=== PATIENT | male | born 1980 | race Caucasian/White ===

== ENCOUNTER 2017-04-11 17:33 | Observation (INO) ==
[2017-04-11] MEDS ORDERED: Ondansetron ODT 4 MG TAB.RAPDIS SL ONE (18:11)
[2017-04-11 19:29] LABS: Basophils # 0.1 K/mcL (0.0-0.2); Basophils % 0.4 %; Eosinophils # 0.3 K/mcL (0.0-0.6); Eosinophils % 2.3 %; Hematocrit 46.1 % (37.5-50.1); Hemoglobin 16.4 g/dL (12.9-16.9); Immature Granulocytes % 0.3 % (0-4); Lymphocytes # 2.3 K/mcL (0.6-4.6); Lymphocytes % 18.9 %; Mean Corpuscular HGB Conc 35.6 g/dL (31.6-35.5); Mean Corpuscular Hemoglobin 30.8 pg (28.0-33.3); Mean Corpuscular Volume 86.5 fL (83.0-100.0); Mean Platelet Volume 9.9 fL (9.4-12.4); Monocytes % 8.6 %; Neutrophils # 8.3 K/mcL (1.6-8.9); Platelet Count 273 K/mcL (140-400); Red Blood Count 5.33 M/mcL (4.19-5.50); Red Cell Distribution Width 13.2 % (11.5-14.5); Segmented Neutrophils % 69.5 %
[2017-04-11 19:43] LABS: Amylase 37 Units/L (25-125); BUN/Creatinine Ratio 12 (6-26); Blood Urea Nitrogen 9 mg/dL (8-26); Calcium 9.2 mg/dL (8.6-10.8); Carbon Dioxide 21 mEq/L (19-29); Chloride 107 mEq/L (98-109); Glucose 116 mg/dL (70-99); Lipase 6 Units/L (8-78); Osmolality,Calculated 286 (280-300); Potassium 3.8 mEq/L (3.5-4.5); Sodium 138 mEq/L (136-145); eGFR For African Americans > 60 (> 60); eGFR For Non-African Americans > 60 (> 60)
[2017-04-11] MEDS ORDERED: *HR* HYDROmorphone (PF) 1 MG/ML SYRINGE IVP ONE ×2 (20:02→21:59)
--- NOTE | 2017-04-11 20:06 | Emergency Department Note ---
Disposition Clinical Impression: Abnormal liver function tests, Elevated C-reactive protein (CRP), Vomiting, Diarrhea, Upper abdominal pain, Colitis, Abnormal urinalysis Disposition: Admitted As Inpatient General Adult HPI - General Chief complaint: ED Nausea/Vomiting/Diarrhea Stated complaint: N/V/D X3 days Time Seen by Provider: 04/11/17 19:09 Source: patient Limitations: no limitations - History of Present Illness HPI Narrative: 37-year-old male reports emergency department complaining of abdominal pain. He also describes recurrent vomiting and diarrhea for the last 2 days. He has not traveled or eaten any unusual foods. There have been no sick contacts. The patient has a history of remote cholecystectomy. He denies any other major medical problems including diabetes. He has had no chest pain or shortness of breath. No flank pain or urinary symptoms. The patient has not passed out. There is no history of fever. The patient denies any malgorzata bloody or black material in the stool. He did take some Pepto-Bismol. The patient has missed some work. He has no personal history of ulcerative colitis or Crohn's disease. He is not anticoagulated. The patient describes significant abdominal pain. There is no history of flank pain or trauma. No other complaints or concerns noted. Pain Scale: 7 - Related Data Home Medications Medication Instructions Recorded Confirmed No Known Home Drugs 04/11/17 04/11/17 Allergies Allergy/AdvReac Type Severity Reaction Status Date / Time Penicillins Allergy See Verified 04/11/17 17:47 Comments All systems ED: reviewed and negative except as stated. Past Medical History - Past Medical History Medical history: Reports: no medical history Psychiatric history: Reports: no psych history - Social History Smoking Status: Current every day smoker Alcohol use: Reports: occasionally Drug use: Reports: none Physical Exam - General Limitations: no limitations General appearance: alert, in no apparent distress - Head Head exam: atraumatic, normocephalic, normal inspection - Eye Eye exam: Present: normal appearance, PERRL, EOMI. Absent: scleral icterus, conjunctival injection, miosis, mydriasis - ENT ENT exam: normal exam, normal oropharynx, mucous membranes moist - Neck Neck exam: Present: normal inspection, full ROM, trachea midline. Absent: meningismus - Chest Chest inspection: Present: symmetric chest wall rise. Absent: tenderness - Respiratory Respiratory exam: Present: normal lung sounds bilaterally. Absent: respiratory distress, wheezes, stridor, accessory muscle use, prolonged expiratory phase - Cardiovascular Cardiovascular exam: Present: tachycardia - Abdominal Exam Abdominal exam: Present: soft, tenderness, guarding. Absent: distention, rebound, rigidity, trauma, Galan's sign, Rovsing's sign, tenderness at McBurney 's Point, ascites, pulsatile mass Abdominal tenderness: Present: RUQ, LUQ, epigastrium, moderate - Extremities Exam Extremities exam: Present: normal inspection, full ROM, normal capillary refill. Absent: tenderness, pedal edema, joint swelling, calf tenderness - Expanded Lower Extremity Exam Lower leg exam: Absent: Homans' sign Neurovascular/Tendon exam: Present: normal capillary refill. Absent: motor deficit, sensory deficit, tendon deficit, extremity cold to touch, pallor - Back Exam Back exam: Present: normal inspection, full ROM. Absent: tenderness, CVA tenderness (R), CVA tenderness (L), vertebral tenderness - Neurological Exam Neurological exam: Present: alert, oriented X3, CN II-XII intact. Absent: motor sensory deficit - Psychiatric Psychiatric exam: Present: normal affect, normal mood - Skin Skin exam: Present: warm, dry, intact, normal color. Absent: rash, cyanosis, diaphoresis, erythema, pallor, mottled Course Vital Signs Temperature 99.4 F 04/11/17 17:44 Pulse Rate 108 04/11/17 17:44 Respiratory Rate 16 04/11/17 17:44 Blood Pressure 131/85 04/11/17 17:44 O2 Sat by Pulse Oximetry 98 04/11/17 17:44 Temperature 99.4 F 04/11/17 17:44 Pulse Rate 103 04/11/17 21:58 Respiratory Rate 16 04/11/17 21:58 Blood Pressure 128/84 04/11/17 21:58 O2 Sat by Pulse Oximetry 96 04/11/17 21:58 Oxygen Delivery Oxygen Delivery Room Air Medical Decision Making - [facility] Narrative Medical decision making narrative: The patient has an apparent leukocytosis and CT scan suggestive of colitis. He was initially tachycardic and he has been experiencing significant pain. Pain control measures were given in the ED as well as IV fluid and antibiotics. Stool studies have been ordered. Based on the patient's pain, tachycardia, colonic abnormalities and a 3 day course of symptomatology with a markedly elevated CRP and abnormal urinalysis as well as abnormal liver function tests, I thought it would be appropriate to admit the patient to the hospital. I discussed the case with the hospitalist on-call who has accepted the patient to their care. - Lab Data Lab results reviewed: Yes I reviewed the patient's lab results. Result diagrams: 04/11/17 19:23 04/11/17 19:23 Lab Results 04/11/17 04/11/17 04/11/17 Range/Units 19:23 19:23 19:55 WBC 12.0 H (4.3-11.1) K/mcL RBC 5.33 (4.19-5.50) M/mcL Hgb 16.4 (12.9-16.9) g/dL Hct 46.1 (37.5-50.1) % MCV 86.5 (83.0-100.0) fL MCH 30.8 (28.0-33.3) pg MCHC 35.6 H (31.6-35.5) g/dL RDW 13.2 (11.5-14.5) % Plt Count 273 (140-400) K/mcL MPV 9.9 (9.4-12.4) fL Immature Gran % 0.3 (0-4) % Seg Neutrophils % 69.5 % Lymphocytes % 18.9 % Monocytes % 8.6 % Eosinophils % 2.3 % Basophils % 0.4 % Neutrophils # 8.3 (1.6-8.9) K/mcL Lymphocytes # 2.3 (0.6-4.6) K/mcL Monocytes # 1.0 (0.0-1.3) K/mcL Eosinophils # 0.3 (0.0-0.6) K/mcL Basophils # 0.1 (0.0-0.2) K/mcL Sodium 138 (136-145) mEq/L Potassium 3.8 (3.5-4.5) mEq/L Chloride 107 (98-109) mEq/L Carbon Dioxide 21 (19-29) mEq/L BUN 9 (8-26) mg/dL Creatinine 0.77 (0.72-1.25) mg/dL Est GFR ( Amer) > 60 (> 60) Est GFR (Non-Af Amer) > 60 (> 60) BUN/Creatinine Ratio 12 (6-26) Glucose 116 H (70-99) mg/dL Calculated Osmolality 286 (280-300) Calcium 9.2 (8.6-10.8) mg/dL Total Bilirubin 0.5 (0.2-1.2) mg/dL Direct Bilirubin 0.2 (0.0-0.5) mg/dL Indirect Bilirubin 0.3 (0.0-1.2) mg/dL AST 39 H (5-34) Units/L ALT 60 H (0-55) Units/L Alkaline Phosphatase 104 (38-126) Units/L C-Reactive Protein 247 H (Less than 5) mg/L Serum Total Protein 7.6 (6.0-8.3) g/dL Albumin 3.5 (3.5-5.0) g/dL Globulin 4.1 H (2.4-3.5) g/dL Albumin/Globulin Ratio 0.9 L (1.1-2.2) Amylase 37 (25-125) Units/L Lipase 6 L (8-78) Units/L Urine Color Dark Yellow (Yellow) Urine Clarity Clear (Clear) Urine pH 6.0 (5.0-8.0) pH Units Ur Specific [place] > 1.030 H (1.010-1.025) Urine Protein 30 H (Neg-Trace) mg/dL Urine Glucose (UA) Normal (Normal) mg/dL Urine Ketones Trace H (Negative) mg/dL Urine Blood Negative (Negative) Urine Nitrite Negative (Negative) Urine Bilirubin Negative (Negative) Urine Urobilinogen Normal (Normal) mg/dL Ur Leukocyte Esterase Negative (Negative) Urine Microscopic RBC 5-15 H (0-3) per hpf Urine Microscopic WBC 3-5 H (0-3) per hpf Ur Squamous Epith Cells Many H (None-Few) per lpf Urine Bacteria None Seen (None-Few) per hpf Hyaline Casts Few (None-Few) per lpf Ur Culture Indicated? NO (NO) - Radiology Data Radiology results reviewed: Yes I reviewed the patient's radiology results.
[2017-04-11 20:08] LABS: Bilirubin,Urine Negative (Negative); Blood,Urine Negative (Negative); Clarity,Urine Clear (Clear); Color,Urine Dark Yellow (Yellow); Glucose,Urine (UA) Normal (Normal); Ketones,Urine Trace mg/dL (Negative); Leukocyte Esterase,Urine Negative (Negative); Nitrite,Urine Negative (Negative); Protein,Urine 30 mg/dL (Neg-Trace); Specific Gravity,Urine > 1.030 (1.010-1.025); Urobilinogen,Urine Normal (Normal)
[2017-04-11 20:10] LABS: Bacteria,Urine None Seen per hpf (None-Few); Hyaline Casts,Urine Few per lpf (None-Few); Squamous Epithelial Cell,Urine Many per lpf (None-Few)
[2017-04-11] MEDS: 0.9 % Sodium Chloride 1,000 ML IVC SCH ×3 (20:19→23:43)
[2017-04-11] MEDS ORDERED: Ondansetron 4 MG/2 ML VIAL IVP ONE (20:24)
[2017-04-11 20:28] LABS: Alanine Aminotransferase 60 Units/L (0-55); Albumin 3.5 g/dL (3.5-5.0); Albumin/Globulin Ratio 0.9 (1.1-2.2); Alkaline Phosphatase 104 Units/L (38-126); Aspartate Amino Transferase 39 Units/L (5-34); Bilirubin,Direct 0.2 mg/dL (0.0-0.5); Bilirubin,Indirect 0.3 mg/dL (0.0-1.2); Bilirubin,Total 0.5 mg/dL (0.2-1.2); Globulin 4.1 g/dL (2.4-3.5); Total Protein 7.6 g/dL (6.0-8.3)
[2017-04-11 20:29] LABS: C-Reactive Protein 247 mg/L (Less than 5)
[2017-04-11] MEDS ORDERED: MetroNIDAZOLE 500 MG/100 ML 500 MG/100 ML BAG IVPB ONE (21:54)
[2017-04-12] MEDS ORDERED: *HR* HYDROmorphone (PF) 1 MG/ML SYRINGE IVP ONE (00:22)
[2017-04-12] MEDS: Nicotine 21 MG PATCH.TD24 TD SCH ×2 (00:56→09:15)
[2017-04-12] MEDS ORDERED: Ondansetron 4 MG/2 ML VIAL IVP PRN (01:49)
--- NOTE | 2017-04-12 01:58 | Internal Med History&Physical ---
Date of Encounter: 04/12/17 Time of Encounter: 01:55 Assessment and Plan (1) Acute colitis Current visit: Yes Status: Acute Patient is having abdominal pain bloody diarrhea and vomiting for the past 2 days. Will check stool studies. Because of bloody diarrhea I will cover patient with antibiotics for possible bacterial causes. Keep NPO, hydrate. No prior similar episodes. No family history of inflammatory bowel disease. Will give SCD boots and protonix for DVT and peptic ulcer disease prophylaxis respectively Internal Medicine - H&P: HPI Chief complaint: abdominal pain and diarrhea History of present illness: Mr. Riojas is a 37 year old male with no significant past medical history except for a prior cholecystectomy presented emergency room today with the main complain of abdominal pain vomiting and diarrhea. For the past 2 days patient has been having watery diarrhea approximately 10 to 20 watery bowel movements every day associated with 3 to 4 episodes daily of nonbloody nonbilious vomiting and diffuse crampy abdominal pain. He was unable to keep any food down for the past couple days. He has been having low-grade fevers and chill. temperature armor on arrival to the emergency room is 99.4. He mentioned that today started noticing bright bloody stools. He denies any sick contact or recent travel. No prior similar episodes. No family history of inflammatory bowel diseases. He thought he may have had a food poisoning related to a pizza he eats about 10 hours earlier. Multiple family members ate from the same without problems. Past Med Surg Social Fam HX - Past Medical History Medical history: no medical history Psychiatric history: no psych history - Past Surgical History Surgical History: cholecystectomy - Social History Smoking Status: Current every day smoker Packs per day: 1 Smokeless Tobacco Status: No Alcohol use: occasionally Drug use: none - Family History Father Hx Family Medical Disorders: Yes (colon issues) Internal Medicine - H&P: Meds No Known Home Drugs 04/11/17 [History] Allergies Penicillins Allergy (Verified 04/11/17 17:47) See Comments swelling All Systems PM: A 10-system review of systems was performed and is negative for pertinent findings except as documented above in the HPI. Review of systems: 10 point review of systems is negative except for HPI - Constitutional Vitals: Temp Pulse Resp BP Pulse Ox 98.4 F 95 17 119/82 98 04/11/17 23:40 04/11/17 23:40 04/11/17 23:40 04/11/17 23:40 04/11/17 23:40 Exam: Gen.: patient is alert oriented times 3 cardiac: normal S1 S2 no additional sounds or murmurs chest: no active wheezing or bronchial breathing abdomen diffuse tenderness, BS present. No rebound lower extremity no swelling. Neuro: no new focal deficits Internal Med - H&P Results - Labs CBC & Chem 7: 04/11/17 19:23 04/11/17 19:23
[2017-04-12] MEDS: D5% in Lactated Ringers 1,000 ML IVC SCH ×2 (02:12→13:45)
[2017-04-12] MEDS: *HR* Morphine 2 MG/ML SYRINGE IVP PRN ×3 (02:20→13:34)
[2017-04-12 04:28] LABS: Basophils % 0.4 %; Eosinophils # 0.3 K/mcL (0.0-0.6); Hematocrit 41.2 % (37.5-50.1); Immature Granulocytes % 0.5 % (0-4); Lymphocytes # 2.6 K/mcL (0.6-4.6); Lymphocytes % 24.5 %; Mean Corpuscular HGB Conc 34.2 g/dL (31.6-35.5); Mean Corpuscular Hemoglobin 30.6 pg (28.0-33.3); Mean Corpuscular Volume 89.4 fL (83.0-100.0); Mean Platelet Volume 10.6 fL (9.4-12.4); Monocytes # 0.9 K/mcL (0.0-1.3); Monocytes % 8.4 %; Neutrophils # 6.8 K/mcL (1.6-8.9); Platelet Count 221 K/mcL (140-400); Red Blood Count 4.61 M/mcL (4.19-5.50); Red Cell Distribution Width 13.3 % (11.5-14.5); Segmented Neutrophils % 63.2 %
[2017-04-12 04:30] LABS: Hemoglobin 14.1 g/dL (12.9-16.9)
[2017-04-12 04:42] LABS: BUN/Creatinine Ratio 12 (6-26); Blood Urea Nitrogen 9 mg/dL (8-26); Carbon Dioxide 24 mEq/L (19-29); Chloride 108 mEq/L (98-109); Glucose 132 mg/dL (70-99); Magnesium 1.7 mg/dL (1.6-2.6); Osmolality,Calculated 289 (280-300); Potassium 3.3 mEq/L (3.5-4.5); Sodium 139 mEq/L (136-145); eGFR For African Americans > 60 (> 60); eGFR For Non-African Americans > 60 (> 60)
[2017-04-12] MEDS ORDERED: Ketorolac 15 MG/ML VIAL IVP ONE (04:45)
[2017-04-12 06:16] LABS: Adenovirus F 40/41 PCR Not detected (Not detect); Astrovirus PCR Not detected (Not detect); C.difficile Toxin A/B by PCR Not detected (Not detect); Cryptosporidium by PCR Not detected (Not detect); Cyclospora cayetanensis PCR Not detected (Not detect); E. coli O157 by PCR Not detected (Not detect); Entamoeba histolytica PCR Not detected (Not detect); Enteroaggregative E.coli(EAEC) Not detected (Not detect); Enteropathogenic E.coli(EPEC) Not detected (Not detect); Enterotoxigenic E.coli (ETEC) Not detected (Not detect); Giardia lamblia PCR Not detected (Not detect); Norovirus GI/GII PCR Not detected (Not detect); Plesiomonas shigelloides PCR Not detected (Not detect); Rotavirus A PCR Not detected (Not detect); Salmonella PCR Not detected (Not detect); Sapovirus PCR Not detected (Not detect); Shig/EnteroinvasiveE coli EIEC Not detected (Not detect); Shigalike tox-prod E coli STEC Not detected (Not detect); Vibrio PCR Not detected (Not detect); Vibrio cholerae PCR Not detected (Not detect); Yersinia enterocolitica PCR Not detected (Not detect)
[2017-04-12 06:18] LABS: Campylobacter by PCR ***DETECTED*** (Not detect)
[2017-04-12] MEDS ORDERED: Levofloxacin 750 MG/150 ML 750 MG/150 ML BAG IVPB SCH ×2 (09:00)
[2017-04-12] MEDS: MetroNIDAZOLE 500 MG/100 ML 500 MG/100 ML BAG IVPB SCH ×3 (09:10→23:35)
--- NOTE | 2017-04-12 14:54 | Event Note ---
Date of Encounter: 04/12/17 Time of Encounter: 09:30 Pt was admitted for coloitis, diffuse abd pain, bloody diarrhea and vomiting since early Tuesday a.m. while he was at work. Pt states that the pain and amt of diarrhea increased significantly and by Tuesday afternoon, he was feeling very poorly. Pt states that he has had multiple episodes of watery diarrhea with associated cramping, however, he states that he has not had any since during the middle of the night. Pt had abd CT in ED that showed wall thickening and inflammaotry changes involving the rectum, right colon an terminal ileum. It may be infections or inflammatory in etiolgoy. Pt's stool study was positive for campylobacter. He denies any sick contacts or anyone else at home being ill, despite them all eating the same foods. Pt is being treated with Levaquin and Flagyl IV. His abd is distended and tender to even light touch with auscultation. He has not had a fever, but did have mild leukocytosis at 12.0 yesterday, it has returned to normal, 10.8 today. Pt has had success with eating a popsicle and will try a clear liquid diet for lunch. May advance as tolerated. Pt is still having diffuse abd pain and is requiring IV pain medication for pain control and IVF for hydration. We will continue to monitor his volume status and pain level and treat accordingly. If he is better controlled by the morning, could consider discharge, if not, consider GI consult. Pt is alert and oriented, interactive and pleasant. His skin is pink warm and dry. Respirations are unlabored and lungs sounds are clear anteriorly and posteriorly. There is no wheezing, rales, or rhonchi. S1 and S2 are heard, there are no gallops, clicks, or murmurs. Abdomen is soft, slightly rounded, tender to even light palpation auscultation. Bowel sounds are hyperactive. He has +2 peripheral pulses upper and lower extremities. We will continue to monitor patient and labs in the morning and reassess.
[2017-04-12] MEDS ORDERED: *HR* Morphine 2 MG/ML SYRINGE IVP PRN (15:02)
[2017-04-13 05:54] LABS: Basophils # 0.1 K/mcL (0.0-0.2); Basophils % 0.6 %; Eosinophils # 0.3 K/mcL (0.0-0.6); Eosinophils % 3.8 %; Hematocrit 40.1 % (37.5-50.1); Hemoglobin 13.9 g/dL (12.9-16.9); Immature Granulocytes % 0.2 % (0-4); Lymphocytes # 2.7 K/mcL (0.6-4.6); Lymphocytes % 31.5 %; Mean Corpuscular HGB Conc 34.7 g/dL (31.6-35.5); Mean Corpuscular Volume 89.5 fL (83.0-100.0); Mean Platelet Volume 10.7 fL (9.4-12.4); Monocytes # 0.8 K/mcL (0.0-1.3); Monocytes % 9.6 %; Neutrophils # 4.6 K/mcL (1.6-8.9); Platelet Count 258 K/mcL (140-400); Red Blood Count 4.48 M/mcL (4.19-5.50); Segmented Neutrophils % 54.3 %
[2017-04-13 06:05] LABS: BUN/Creatinine Ratio 10 (6-26); Blood Urea Nitrogen 7 mg/dL (8-26); Calcium 8.4 mg/dL (8.6-10.8); Carbon Dioxide 22 mEq/L (19-29); Chloride 110 mEq/L (98-109); Glucose 127 mg/dL (70-99); Osmolality,Calculated 290 (280-300); Potassium 3.5 mEq/L (3.5-4.5); Sodium 140 mEq/L (136-145); eGFR For African Americans > 60 (> 60); eGFR For Non-African Americans > 60 (> 60)
[2017-04-13 07:17] VITALS: BP 128/89
[2017-04-13] MEDS ORDERED: levoFLOXacin 500 MG TABLET PO ONE (08:19)
[2017-04-13] MEDS: Nicotine 21 MG PATCH.TD24 TD SCH (08:26)
--- NOTE | 2017-04-13 09:24 | Discharge Summary ---
Date of Encounter: 04/13/17 Time of Encounter: 08:10 - Discharge Diagnosis (1) Campylobacter diarrhea Priority: Secondary Status: Acute Comments: Stool study positive for Campylobacter. Patient is being treated with Levaquin and Flagyl IV. Will be sent home on by mouth. We discussed not using Imodium or any antidiarrheals at home. He said he had one episode of diarrhea since I saw him yesterday. He denies any sick contacts and states that others ate the same thing that he did without any problems. (2) Acute colitis Priority: Primary Status: Acute Comments: Patient presented to the emergency department on April 11 with complaints of abdominal pain, bloody diarrhea, and vomiting for 2 days prior to arrival. Patient had CT in the emergency department showed wall thickening and inflammatory change to rectum, right colon, terminal ileum. There is no evidence of obstruction or fixed stricture. Inflammation cannot be infectious with Campylobacter in his stool study. Patient did not have a fever and had only a mildly elevated white count on arrival. He has been treated with Flagyl and Levaquin IV since arrival. Yesterday his abdomen was tender to even light palpation, today abdomen is no longer tender. He reports one episode of diarrhea since I saw him yesterday morning, he said it was about 2 hours after eating a regular meal tray. He said he did well with full liquid. On discharge he will go back to full liquid and we discussed avoiding stimulants, fats, spicy foods for a few days. Advance diet as tolerated. He will be sent home on antibiotics to complete the course. Patient states he feels significantly better today. (3) Diarrhea Priority: Secondary Status: Acute Comments: Plan as above Qualifiers: Diarrhea type: infectious Qualified Code(s): A09 - Infectious gastroenteritis and colitis, unspecified - Discharge Medications Prescriptions: Azithromycin [Zithromax] 250 mg PO Q24H #3 tablet Home Medications: Azithromycin [Zithromax] 250 mg PO Q24H #3 tablet 04/13/17 [Rx] Allergies/Adverse Reactions: Allergies Penicillins Allergy (Verified 04/11/17 17:47) See Comments swelling Date of admission: 04/11/17 22:34 Primary care physician: Mildred Mcneil CNP Discharging clinician: Brianne Gaspar Anticipated date of discharge: 04/13/17 - Patient Status Disposition: Home, Self-Care Condition: Good Functional capacity at discharge: independent ambulation Overall status at discharge: patient is progressing back to baseline - Discharge Instructions Follow Up With: Mildred Mcneil CNP [Primary Care Provider] - 04/29/17 9:30 am Additional Instructions: Take your antibiotic as directed. Advance your diet slowly. Try to avoid caffeine, carbonation, spicy, or fatty foods. Avoid anti-diarrheal medications Stay hydrated, drink plenty of fluids. Return to the ER as needed if you have any problems, new, or concerning symptoms. Return to work on Tuesday, April 18, 2017. - Diet and Activity Activity: increase activity as tolerated Diet: advance to your usual diet Interval History: Patient presented to the emergency department on April 11 with abdominal pain, bloody diarrhea, vomiting for 2 days prior to arrival. The emergency department he had a CAT scan that showed wall thickening inflammatory change involving rectum, right: Common terminal ileum. Per CT this may be infectious or inflammatory in etiology. Patient was immediately started on IV antibiotics urgency department. He was nothing by mouth, received IV fluids. He denies any sick contacts and stated that he ate the same food as everyone else did it does not become ill. Stool study came back positive for Campylobacter. Yesterday when I saw him he was still having some episodes of diarrhea, and his abdomen was exquisitely tender all over even to light palpation. He did tolerate clear liquids, then advance to full liquids, and advanced to a regular meal tray, about 2 hours later had diarrhea again. He has had one episode of diarrhea since I saw him yesterday. He had a mildly elevated white count at 12 on arrival. He has had no white count since. Labs within normal limits. Vital signs are within normal limits. Patient states he feels much better today and is ready to go home. We discussed avoiding caffeine, stimulants, fatty, spicy foods. He will continue his azithromycin 250 mg by mouth 3 days at home. He denies nausea at this time. Abdomen is soft and rounded, hyperactive bowel sounds heard. Abdomen is still longer tender, he just says it is sore from diarrhea and vomiting. Patient has last 2 doses of IV antibiotics this morning and tolerated a full liquid breakfast tray without any nausea, vomiting, diarrhea. Patient is ready and stable for discharge. Hospital course: Mr. Riojas is a 37 year old male - Time Spent with Patient Total time spent providing and/or coordinating discharge services: - Constitutional Vitals: Temp Pulse Resp BP Pulse Ox 98.2 F 85 16 128/89 99 04/13/17 07:15 04/13/17 07:15 04/13/17 07:15 04/13/17 07:15 04/13/17 07:15 General appearance: Present: cooperative, A&O X 3, pleasant, no acute distress, answers questions appropriately - Head Head exam: Present: normal inspection - Eye Eye exam: Present: normal appearance, conjuntiva pink - ENT ENT exam: Present: mucous membranes moist, normal exam, normal external ear exam - Neck Neck exam general surgery: Present: normal inspection. Absent: lymphadenopathy , tenderness - Respiratory Respiratory exam: Present: CTAB, respiratory distress. Absent: rales, rhonchi, wheezes - Cardiovascular Cardiovascular exam: Present: RRR, +S1, +S2. Absent: clicks, diastolic murmur, gallop, systolic murmur - GI/Abdominal GI/Abdominal exam: Present: hyperactive bowel sounds, soft, tenderness. Absent : distended, firm - Extremities Exam Extremities exam: Present: normal capillary refill, warm, radial pulses palpable and symetrical. Absent: pedal edema, tenderness - Neurological Exam Neurological exam: Present: alert, oriented X3, no focal deficits. Absent: facial droop, speech deficit - Skin Skin exam: Present: dry, intact, normal color, warm. Absent: rash
== END 2017-04-13 11:00 | disposition home or self-care (01) ==
LOC: EMEROO 17:33 → 3BNU 17:33
PROVIDERS: ADMIT Hospitalist; ATTEND Registered Nurse